=== PATIENT | female | born 1955 | race Hispanic/Latino ===

== ENCOUNTER 2022-02-24 19:49 | Inpatient (IN) | payer OTHER ==
[2022-02-24 20:53] LABS: Absolute Lymphocytes (CBC) 0.4 K/uL (0.7-4.9); Lymphocytes % 2.8 % (15.3-44.8); MCV 90.6 fL (80-100); MPV 8.1 fL (7.6-11.3); RBC Red Blood Cell Count 4.42 M/uL (3.86-4.86)
--- NOTE | 2022-02-24 20:54 | RAD REPORT ---
EXAM DESCRIPTION: RAD - Chest Single View - 02/24/2022 8:37 pm CLINICAL HISTORY: CHEST PAIN COMPARISON: CHEST PA AND LAT 2 VIEW dated 03/10/2011; CHEST SINGLE VIEW dated 11/27/2007; CHEST PA AND LAT 2 VIEW dated 07/08/2007 FINDINGS: Lines: None. Lungs: No evidence of edema or pneumonia. Pleural: No significant pleural effusions or pneumothorax. Cardiac: The heart size is within normal limits. Mediastinum: Within normal limits. Bones: No acute fractures. Other: None IMPRESSION: No acute cardiopulmonary disease.
[2022-02-24] MEDS ORDERED: FENTANYL CITR 100 MCG/2 ML ONE (20:59)
[2022-02-24] MEDS ORDERED: ONDANSETRON 4 MG/2 ML VIAL ONE (20:59)
[2022-02-24 21:04] LABS: Protime INR 1.04
[2022-02-24 21:21] LABS: Urine Blood 1+ (Negative); Urine Glucose Negative (Negative); Urine Protein 2+ (Negative); Urine Specific Gravity 1.025 (1.005-1.030)
[2022-02-24 21:22] LABS: Potassium 3.4 mmol/L (3.5-5.1); Troponin High Sensitivity 8.8 pg/mL (<58.9)
[2022-02-25] LABS: Urine Bacteria <20 /HPF (<20); Urine Mucus 4+ /HPF (None Seen)
--- NOTE | 2022-02-25 00:34 | EDPHYS ---
Physician Documentation [facility] Name: Florence Parikh Age: 66 yrs Sex: Female : 1955 Arrival Date: 02/24/2022 Time: 19:52 Bed 7 Private MD: IDALIA Physician Sim Nguyen HPI: 02/24 23:03 This 66 yrs old Female presents to ER via Wheelchair with complaints of Chest kb Pain, Vomiting, Shaking. 23:03 The patient or guardian reports chest pain that is located primarily in the chest kb diffusely. Onset: today. The pain radiates to back. Associated signs and symptoms: Pertinent positives: nausea, vomiting. The chest pain is described as aching. Duration: The patient or guardian reports a single episode. Modifying factors: The symptoms are alleviated by nothing. the symptoms are aggravated by nothing. Severity of pain: At its worst the pain was moderate in the emergency department the pain is unchanged. The patient has not experienced similar symptoms in the past. The patient has been recently seen by a physician:. Pt had angiography to remove blockage from left leg this morning. States she went home and took a nap afterwards. When she woke up she was shaking and vomited once. States she talked to her dr and was told to drink juice. states pt drank juice and the shaking stopped. Pt ended up vomiting once more prior to coming in. States chest pain started prior to arrival and now is radiating to back. . Historical: - Allergies: 20:09 Sulfa (Sulfonamide Antibiotics); eh3 20:09 Codeine; eh3 - PMHx: 20:09 Hypertensive disorder; eh3 - PSHx: 20:09 None; eh3 - Immunization history:: Adult Immunizations up to date, Client reports receiving the 2nd dose of the Covid vaccine. - Social history:: Smoking status: Patient denies any tobacco usage or history of. Patient/guardian denies using alcohol. ROS: 23:01 Abdomen/GI: Negative for abdominal pain, nausea, vomiting, diarrhea, and constipation. kb 23:01 Constitutional: Positive for chills. 23:01 Cardiovascular: Positive for chest pain, Negative for edema, orthopnea, palpitations, paroxysmal nocturnal dyspnea. 23:01 Abdomen/GI: Positive for nausea and vomiting, Negative for abdominal pain. 23:01 All other systems are negative. Exam: 23:01 Constitutional: This is a well developed, well nourished patient who is awake, alert, kb and in no acute distress. Head/Face: Normocephalic, atraumatic. ENT: Moist Mucous membranes Cardiovascular: Regular rate and rhythm with a normal S1 and S2. No gallops, murmurs, or rubs. No pulse deficits. Respiratory: Respirations even and unlabored. No increased work of breathing. Talking in full sentences Abdomen/GI: Soft, non-tender. No distention Skin: Warm, dry with normal turgor. Normal color. MS/ Extremity: Pulses equal, no cyanosis. Neurovascular intact. Full, normal range of motion. Neuro: Awake and alert, GCS 15, oriented to person, place, time, and situation. Moves all extremities. Normal gait. Psych: Awake, alert, with orientation to person, place and time. Behavior, mood, and affect are within normal limits. Vital Signs: 20:04 BP 151 / 71; Pulse 116; Resp 18; Temp 100.3(O); Pulse Ox 97% on R/A; Weight 81.65 kg; eh3 Height 5 ft. 3 in. (160.02 cm); Pain 8/10; 20:23 BP 162 / 72; Pulse 111; Resp 17; Pulse Ox 95% on R/A; kl 22:00 BP 157 / 70; Pulse 108; Resp 16; Pulse Ox 97% on R/A; kl 22:17 Pain 3/10; kl 02/25 02:33 BP 124 / 78; Pulse 78; Resp 18; Temp 98.2(TE); Pulse Ox 99% on R/A; kl 02/24 20:04 Body Mass Index 31.89 (81.65 kg, 160.02 cm) eh3 MDM: 02/24 20:09 Patient medically screened. kb 23:00 Data reviewed: vital signs, nurses notes. Data interpreted: Pulse oximetry: on room air kb is 97 %. Interpretation: normal. 02/25 00:33 Counseling: I had a detailed discussion with the patient and/or guardian regarding: the kb historical points, exam findings, and any diagnostic results supporting the discharge/admit diagnosis, lab results, radiology results, the need for further work-up and treatment in the hospital. Physician consultation: Jennifer RUEDA was contacted at 00:33, regarding admission, patient's condition, and will see patient in ED. 01:45 ED course: Severe sepsis criteria met at 0144. Source (A): UTI; SIRS Criteria (B): WBC, kb heart rate; End organ dysfunction (C): lactate. . 02/24 20:11 Order name: Basic Metabolic Panel; Complete Time: 21:26 kb 02/24 20:11 Order name: CBC with Diff; Complete Time: 21:04 kb 02/24 20:11 Order name: NT PRO-BNP; Complete Time: 21:26 kb 02/24 20:11 Order name: PT-INR; Complete Time: 21:04 kb 02/24 20:11 Order name: Troponin HS; Complete Time: 21:26 kb 02/24 20:11 Order name: COVID-19 SARS RT PCR (Document "Date of Onset" if Symptomatic); Complete kb Time: 21:40 02/24 20:11 Order name: XRAY Chest (1 view); Complete Time: 20:59 kb 02/24 20:11 Order name: Flu; Complete Time: 21:26 kb 02/24 20:11 Order name: Urine Microscopic Only; Complete Time: 00:06 kb 02/24 21:21 Order name: Urine Dipstick-Ancillary; Complete Time: 21:26 EDMS 02/25 00:08 Order name: Urine Culture EDMS 02/25 00:27 Order name: Blood Culture Adult (2) kb 02/25 00:27 Order name: Lactate; Complete Time: 01:44 kb 02/24 20:11 Order name: EKG; Complete Time: 20:13 kb 02/24 20:11 Order name: Cardiac monitoring; Complete Time: 20:35 kb 02/24 20:11 Order name: EKG - Nurse/Tech; Complete Time: 20:35 kb 02/24 20:11 Order name: IV Saline Lock; Complete Time: 20:35 kb 02/24 20:11 Order name: Labs collected and sent; Complete Time: 20:35 kb 02/24 20:11 Order name: O2 Per Protocol; Complete Time: 22:25 kb 02/24 20:11 Order name: O2 Sat Monitoring; Complete Time: 22:25 kb 02/24 20:11 Order name: Urine Dipstick-Ancillary (obtain specimen); Complete Time: 22:21 kb Administered Medications: 02/24 20:55 Drug: Zofran (Ondansetron) 4 mg Route: IVP; Site: right antecubital; 22:00 Follow up: Response: Marked relief of symptoms 20:57 Drug: fentaNYL (PF) 50 mcg Route: IVP; Site: right antecubital; kl 22:00 Follow up: Response: Marked relief of symptoms 02/25 02:25 Drug: Rocephin (cefTRIAXone) 1 grams Route: IV; Rate: calculated rate; Site: left kl forearm; 03:00 Follow up: Response: No adverse reaction 02:32 Drug: Hickman (HYDROcodone-acetaminophen) (7.5 mg-325 mg) 1 tabs Route: PO; 03:00 Follow up: Response: No adverse reaction 02:32 Drug: NS 0.9% 1000 ml Route: IV; Rate: 1000 ml; Site: left forearm; Disposition: 05:02 Co-signature as Attending Physician, Sim Nguyen MD. rn Disposition Summary: 02/25/22 00:34 Hospitalization Ordered Hospitalization Status: Observation kb Provider: Jonnathan Billings Location: Telemetry/MedSurg (observation) kb Condition: Stable kb Problem: new kb Symptoms: are unchanged kb Bed/Room Type: Standard Room Assignment: [facility](02/25/22 02:30) mw Diagnosis - Elevated white blood cell count kb - Chest pain, unspecified kb - UTI/ Urinary tract infection, site not specified kb - Severe sepsis without septic shock kb Forms: - Medication Reconciliation Form kb - SBAR form kb Signatures: Dispatcher [employer] EDSerena Wood FNP-C FNP-Lila Pierre RN RN kl Webb, Martha, RN RN mw Nieto, Roman, MD MD rn Brown, Sophia, PA PA sb3 Darcy Edwards RN RN eh3 Corrections: (The following items were deleted from the chart) 01:48 01:45 ED course: Severe sepsis criteria met. Source (A): UTI; SIRS Criteria (B): WBC, kb heart rate; End organ dysfunction (C): lactate. . kb 02:30 00:34 kb mw
--- NOTE | 2022-02-25 00:34 | ER ---
Nurse's Notes [facility] Name: Florence Parikh Age: 66 yrs Sex: Female : 1955 Arrival Date: 02/24/2022 Time: 19:52 Bed 7 Private MD: Diagnosis: Elevated white blood cell count;Chest pain, unspecified;UTI/ Urinary tract infection, site not specified;Severe sepsis without septic shock Presentation: 02/24 20:04 Chief complaint: Patient states: had angiogram around noon today, then around 5pm she eh3 began shaking uncontrollably with left shoulder pain radiating to left upper back. Coronavirus screen:. Coronavirus screen: At this time, the client does not indicate any symptoms associated with coronavirus-19. Ebola Screen: No symptoms or risks identified at this time. Initial Sepsis Screen: Does the patient meet any 2 criteria? No. Patient's initial sepsis screen is negative. Does the patient have a suspected source of infection? No. Patient's initial sepsis screen is negative. Risk Assessment: Do you want to hurt yourself or someone else? Patient reports no desire to harm self or others. Onset of symptoms was February 24, 2022. 20:04 Method Of Arrival: Wheelchair eh3 20:04 Acuity: LYNNETTE 3 eh3 Triage Assessment: 20:09 General: Appears in no apparent distress. uncomfortable, Behavior is calm, cooperative, eh3 appropriate for age. Pain: Complains of pain in chest Pain does not radiate. Pain currently is 8 out of 10 on a pain scale. Quality of pain is described as throbbing. EENT: No signs and/or symptoms were reported regarding the EENT system. Neuro: Level of Consciousness is awake, alert, obeys commands, Oriented to person, place, time, situation, Appropriate for age. Cardiovascular: Capillary refill < 3 seconds Patient's skin is warm and dry. Respiratory: Airway is patent Respiratory effort is even, unlabored. GI: Abdomen is round non-distended, Reports nausea. : No signs and/or symptoms were reported regarding the genitourinary system. Derm: No signs and/or symptoms reported regarding the dermatologic system. Musculoskeletal: No signs and/or symptoms reported regarding the musculoskeletal system. Historical: - Allergies: 20:09 Sulfa (Sulfonamide Antibiotics); eh3 20:09 Codeine; eh3 - PMHx: 20:09 Hypertensive disorder; eh3 - PSHx: 20:09 None; eh3 - Immunization history:: Adult Immunizations up to date, Client reports receiving the 2nd dose of the Covid vaccine. - Social history:: Smoking status: Patient denies any tobacco usage or history of. Patient/guardian denies using alcohol. Screenin:22 Abuse screen: Denies threats or abuse. Nutritional screening: No deficits noted. Tuberculosis screening: No symptoms or risk factors identified. Fall Risk None identified. Assessment: 20:20 General: Appears distressed, uncomfortable, well groomed, well developed, Behavior is kl cooperative, restless. Pain: Complains of pain in anterior aspect of left upper chest Pain radiates to left arm Pain currently is 10 out of 10 on a pain scale. Pain began 1 hour ago. Neuro: No deficits noted. Cardiovascular: Heart tones S1 S2 Rhythm is sinus tachycardia. Respiratory: No deficits noted. GI: Reports vomiting. : No deficits noted. No signs and/or symptoms were reported regarding the genitourinary system. EENT: No deficits noted. No signs and/or symptoms were reported regarding the EENT system. 22:00 Reassessment: Patient appears in no apparent distress at this time. No changes from previously documented assessment. Patient is alert, oriented x 3, equal unlabored respirations, skin warm/dry/pink. 23:00 Reassessment: Patient appears in no apparent distress at this time. No changes from previously documented assessment. Patient is alert, oriented x 3, equal unlabored respirations, skin warm/dry/pink. Vital Signs: 20:04 BP 151 / 71; Pulse 116; Resp 18; Temp 100.3(O); Pulse Ox 97% on R/A; Weight 81.65 kg; eh3 Height 5 ft. 3 in. (160.02 cm); Pain 8/10; 20:23 BP 162 / 72; Pulse 111; Resp 17; Pulse Ox 95% on R/A; kl 22:00 BP 157 / 70; Pulse 108; Resp 16; Pulse Ox 97% on R/A; kl 22:17 Pain 3/10; kl 02/25 02:33 BP 124 / 78; Pulse 78; Resp 18; Temp 98.2(TE); Pulse Ox 99% on R/A; kl 02/24 20:04 Body Mass Index 31.89 (81.65 kg, 160.02 cm) eh3 ED Course: 02/24 19:52 Patient arrived in ED. bp1 20:04 [facility] Pad[facility]C [facility]. kb 20:04 Sim Nguyen MD is Attending Physician. kb 20:09 Triage completed. eh3 20:09 Arm band placed on right wrist. eh3 20:22 Patient has correct armband on for positive identification. Client placed on continuous kl cardiac and pulse oximetry monitoring. NIBP monitoring applied. 20:22 EKG done, by ED staff, reviewed by Serena JARAMILLO. kl 20:35 Basic Metabolic Panel Sent. kl 20:35 CBC with Diff Sent. kl 20:35 NT PRO-BNP Sent. kl 20:35 PT-INR Sent. kl 20:35 Troponin HS Sent. kl 20:39 XRAY Chest (1 view) In Process Unspecified. EDMS 20:41 Inserted saline lock: 20 gauge in right antecubital area, using aseptic technique. oe Blood collected. 20:41 Flu Sent. oe 20:41 COVID-19 SARS RT PCR (Document "Date of Onset" if Symptomatic) Sent. oe 23:30 Urine Microscopic Only Sent. ll3 02/25 00:33 Jonnathan Billings is Hospitalizing Provider. kb 02:16 Inserted IV discontinued, intact, bleeding controlled, No redness/swelling at site. kl Pressure dressing applied, per patietn request. 02:16 Inserted saline lock: 22 gauge in left forearm, using aseptic technique. kl 02:33 No provider procedures requiring assistance completed. Patient maintains SpO2 kl saturation greater than 95% on room air. Administered Medications: 02/24 20:55 Drug: Zofran (Ondansetron) 4 mg Route: IVP; Site: right antecubital; kl 22:00 Follow up: Response: Marked relief of symptoms kl 20:57 Drug: fentaNYL (PF) 50 mcg Route: IVP; Site: right antecubital; kl 22:00 Follow up: Response: Marked relief of symptoms 02/25 02:25 Drug: Rocephin (cefTRIAXone) 1 grams Route: IV; Rate: calculated rate; Site: left kl forearm; 03:00 Follow up: Response: No adverse reaction kl 02:32 Drug: [place] (HYDROcodone-acetaminophen) (7.5 mg-325 mg) 1 tabs Route: PO; 03:00 Follow up: Response: No adverse reaction 02:32 Drug: NS 0.9% 1000 ml Route: IV; Rate: 1000 ml; Site: left forearm; Medication: 03:00 VIS not applicable for this client. pat Outcome: 00:34 Decision to Hospitalize by Provider. kb 02:59 Admitted to Tele accompanied by tech, via wheelchair, room 413, Report called to pat ness 02:59 Condition: improved 02:59 Instructed on the need for admit, Demonstrated understanding of instructions. 03:20 Patient left the ED. ll3 Signatures: Dispatcher [employer] EDSerena Wood, ADVICE NURSE-C ADVICE NURSE-CkLila Amaya, RN Deandre Aguayo Brittany bp1 Loubet, Lynsea, RN RN ll3 Darcy Edwards RN RN eh3
--- NOTE | 2022-02-25 02:01 | P.HP ---
Certification for Inpatient Patient admitted to: Inpatient With expected LOS: <2 Midnights Patient will require the following post-hospital care: None Practitioner: I am a practitioner with admitting privileges, knowledge of patient current condition, hospital course, and medical plan of care. Services: Services provided to patient in accordance with Admission requirements found in Title 42 Section 412.3 of the Code of Federal Regulations Patient History Date of Service: 02/25/22 Primary Care Provider: Emeka Reason for admission: UTI, Sepsis History of Present Illness: Patient is a 66 year-old female with history of hypertension and type 2 diabetes who presented to the ED with complaints of chest pain, vomiting, and shaking. Patient reports that she had a leg left angiogram with Dr. Solomon today at 1200 that went well and woke up this evening feeling poorly. She is febrile and tachycardic upon arrival to ED. Labs significant for WBC 15.6 with left shift, potassium 3.4, lactic acid 2.9, and urine positive for UTI. She was started on rocephin in ED. She is admitted for further management. Home medications list reviewed: Yes - Past Medical/Surgical History Diabetic: No -: Hypertension -: Cholecystectomy -: Angiogram Psychosocial/ Personal History: Patient lives at home with her . - Social History Smoking Status: Never smoker Alcohol use: No CD- Drugs: No Caffeine use: Yes Place of Residence: Home Review of Systems General: Fever, Chills Cardiovascular: Chest Pain Gastrointestinal: Nausea, Vomiting Physical Examination - Physical Exam General: Alert, In no apparent distress, Obese, Other (anxious, tearful) HEENT: Atraumatic, PERRLA, EOMI, Sclerae nonicteric Neck: Supple, 2+ carotid pulse no bruit, No LAD, Without JVD or thyroid abnormality Respiratory: Clear to auscultation bilaterally, Normal air movement Cardiovascular: Regular rate/rhythm, Normal S1 S2 Gastrointestinal: Normal bowel sounds, No tenderness Musculoskeletal: No tenderness Integumentary: No rashes Neurological: Normal speech, Normal strength at 5/5 x4 extr, Normal tone, Normal affect - Studies Laboratory Data (last 24 hrs) 02/24/22 20:28: PT 11.5, INR 1.04 02/24/22 20:28: WBC 15.60 H, Hgb 13.4, Hct 40.0, Plt Count 195 02/24/22 20:28: Sodium 141, Potassium 3.4 L, BUN 14, Creatinine 0.98, Glucose 144 H Microbiology Data (last 24 hrs): 02/24/22 20:37 Nasopharnyx Influenza Type A Antigen Screen - Final 02/24/22 20:37 Nasopharnyx Influenza Type B Antigen Screen - Final Assessment and Plan - Problems (Diagnosis) (1) UTI (urinary tract infection) Current Visit: Yes Status: Acute Qualifiers: Urinary tract infection type: acute cystitis Hematuria presence: with hematuria Qualified Code(s): N30.01 - Acute cystitis with hematuria (2) Sepsis Current Visit: Yes Status: Acute Qualifiers: Sepsis type: sepsis due to unspecified organism Sepsis acute organ dysfunction status: without acute organ dysfunction Qualified Code(s): A41.9 - Sepsis, unspecified organism (3) Hypertension Current Visit: Yes Status: Acute Qualifiers: Hypertension type: primary hypertension Qualified Code(s): I10 - Essential (primary) hypertension - Plan -Patient denies any UTI symptoms. Anxiety likely a component (crying during IV insertion). -Continue rocephin. Follow urine culture -Meeting severe sepsis criteria at this time -Received 1L fluid in ED. Will continue maintenance IVF at 100 cc/hr -Morphine PRN pain -Monitor and replete electrolytes per protocol -Reconcile and continue home medications -Lovenox for VTE ppx -Full code Discharge Plan: Home Plan to discharge in: 48 Hours - Advance Directives Does patient have a Living Will: No Does patient have a Durable POA for Healthcare: No - Code Status/Comfort Care Code Status Assessed: Yes (Full) Critical Care: No Time Spent Managing Pts Care (In Minutes): 50
[2022-02-25] MEDS ORDERED: HYDROCODONE/APAP 7.5/325 MG TAB ONE (02:33)
[2022-02-25] MEDS ORDERED: NA CHLORIDE 0.9% 1,000 ML ONE (02:33)
[2022-02-25] MEDS ORDERED: CEFTRIAXONE 1000 MG/VIAL ONE (02:33)
[2022-02-25] MEDS ORDERED: ACETAMINOPHEN 500 MG TAB PO PRN (03:18)
[2022-02-25] MEDS: NA CHLORIDE 0.9% 1,000 ML IV SCH ×4 (03:18→21:11)
[2022-02-25 04:28] LABS: Absolute Lymphocytes (CBC) 0.4 K/uL (0.7-4.9); Hematocrit 35.4 % (36.0-45.0); Lymphocytes % 2.3 % (15.3-44.8); MCV 90.9 fL (80-100); MPV 7.8 fL (7.6-11.3)
[2022-02-25 05:00] LABS: Magnesium 1.6 mg/dL (1.8-2.4); Phosphorus 3.3 mg/dL (2.5-4.9); Potassium 3.4 mmol/L (3.5-5.1); Thyroid Stimulating Hormone 0.6 uIU/mL (0.360-3.740)
[2022-02-25] MEDS ORDERED: MAGNESIUM SULFATE 1 gm IVPB 1 GM/100 ML BAG IV ONE (08:00)
[2022-02-25] MEDS ORDERED: POTASSIUM 25 MEQ EFFERV TAB PO ONE (08:00)
[2022-02-25] MEDS: MORPHINE 2 MG/ML SYR IV PRN ×2 (08:37→21:09)
[2022-02-25] MEDS: CEFEPIME 2 GM in NA CHLORIDE 0.9% 100 ML IV SCH ×2 (08:37→21:11)
[2022-02-25] MEDS: ENOXAPARIN 40 MG/0.4 ML SQ SCH (08:37)
[2022-02-25] MEDS: ONDANSETRON 4 MG/2 ML VIAL IV PRN (08:45)
[2022-02-25] MEDS: VANCOMYCIN 1.5 GM in NA CHLORIDE 0.9% 500 ML IVPB SCH (08:46)
[2022-02-25] MEDS ORDERED: VANCOMYCIN 1.25 GM in NA CHLORIDE 0.9% 250 ML IVPB SCH (09:00)
[2022-02-25] MEDS ORDERED: CEFTRIAXONE 1,000 MG in NA CHLORIDE 0.9% 50 ML IVPB SCH (09:00)
--- NOTE | 2022-02-25 13:01 | P.PN ---
Date of Service: 02/25/22 Patient seen and examined. She is complaining of abdominal pain and nausea. She is also complaining of chest pain Diagnosis: UTI Sepsis Plan: Broaden antibiotics to IV cefepime and vancomycin given recent intravascular surgery. Follow urine culture and blood cultures. Trend troponin for chest pain. Pain medication as needed. Obtain echocardiogram.
--- NOTE | 2022-02-25 13:56 | EKG ---
Test Date: 2022-02-24 Test Time: 20:11:56 Primary Substance Abuse Counselor: JORGE MEASUREMENT RESULTS: Intervals: Rate: 108 ME: 140 QRSD: 76 QT: 326 QTc: 436 [place]: P: 53 ME: 140 QRS: 32 T: 43 INTERPRETIVE STATEMENTS: Sinus tachycardia Otherwise normal ECG Compared to ECG 03/10/2011 14:34:12 Sinus rhythm no longer present Electronically Signed On 02-25-22 13:55:15 CDT by Bob Munson
[2022-02-25] MEDS: KCL 20 MEQ/100 mL IVPB 20 MEQ/100 ML BAG IV SCH ×2 (15:17→18:13)
[2022-02-26 04:08] LABS: Lymphocytes % 8.9 % (15.3-44.8); MCV 90.1 fL (80-100); MPV 8.2 fL (7.6-11.3); RBC Red Blood Cell Count 3.77 M/uL (3.86-4.86)
[2022-02-26 04:21] LABS: Magnesium 1.9 mg/dL (1.8-2.4); Phosphorus 1.7 mg/dL (2.5-4.9); Potassium 3.7 mmol/L (3.5-5.1)
[2022-02-26] MEDS ORDERED: POTASSIUM CL SA 10 MEQ TAB PO ONE (04:42)
[2022-02-26] MEDS ORDERED: POTASS/SODIUM PHOSPHATE 1 PKT POWD.PACK PO SCH (06:04)
[2022-02-26] MEDS: NA CHLORIDE 0.9% 1,000 ML IV SCH ×2 (06:38→17:39)
[2022-02-26 07:17] VITALS: BMI 33.0
[2022-02-26] MEDS ORDERED: POTASSIUM PHOS 22 MEQ in NA CHLORIDE 0.9% 250 ML IV ONE (07:30)
[2022-02-26] MEDS: CEFEPIME 2 GM in NA CHLORIDE 0.9% 100 ML IV SCH ×2 (08:26→22:10)
[2022-02-26] MEDS: ENOXAPARIN 40 MG/0.4 ML SQ SCH (08:27)
[2022-02-26] MEDS ORDERED: POTASSIUM PHOS IN 0.9 % NACL 15 MMOL/250 ML BAG IV ONE (09:00)
[2022-02-26] MEDS: VANCOMYCIN 1.5 GM in NA CHLORIDE 0.9% 500 ML IVPB SCH (10:37)
--- NOTE | 2022-02-26 14:14 | P.PN ---
Subjective Date of Service: 02/26/22 Primary Care Provider: Emeka Chief Complaint: UTI, Sepsis States she feels better today. She denies nausea, no vomiting. She is tolerating diet. No recorded fever. She is complaining of chest tightness. Troponin trended and yesterday was negative. EKG demonstrated sinus tachycardia. Physical Examination - Vital Signs Temperature: 97.5 F Blood Pressure: 116/56 Pulse: 83 Respirations: 14 Pulse Ox (%): 98 - Studies Microbiology Data (last 24 hrs): 02/25/22 01:51 Blood - Blood Anaerobic Blood Culture - Final Assessment And Plan - Current Problems (Diagnosis) (1) Chest tightness Current Visit: Yes Status: Acute (2) Hypertension Current Visit: Yes Status: Acute Qualifiers: Hypertension type: primary hypertension Qualified Code(s): I10 - Essential (primary) hypertension (3) Sepsis Current Visit: Yes Status: Acute Qualifiers: Sepsis type: sepsis due to unspecified organism Sepsis acute organ dysfunction status: without acute organ dysfunction Qualified Code(s): A41.9 - Sepsis, unspecified organism (4) UTI (urinary tract infection) Current Visit: Yes Status: Acute Qualifiers: Urinary tract infection type: acute cystitis Hematuria presence: with hematuria Qualified Code(s): N30.01 - Acute cystitis with hematuria - Plan Physical Exam General: Alert, In no apparent distress. Neck: Supple,No LAD, Without JVD. Respiratory: Clear to auscultation bilaterally, Normal air movement Cardiovascular: Regular rate/rhythm, Normal S1 S2 Gastrointestinal: Normal bowel sounds, No tenderness Musculoskeletal: No tenderness Integumentary: No rashes Neurological: Normal speech, Normal strength at 5/5 x4 extr, Normal affect. Plan: Patient is responding clinically to the current antibiotics. Leukocytosis trended down and almost resolved No fever since yesterday. Appetite has improved and patient is eating. Urine culture: Mixed growth. Continue to follow. Blood culture: No growth to date. Patient with recent intravascular surgery, history of PAD, high risk for CAD. Troponin negative, EKG demonstrated sinus tachycardia. No ACS. Patient is complaining of intermittent chest tightness. Repeat EKG and troponin. Bronchodilators.
[2022-02-26] MEDS ORDERED: ALBUTEROL 2.5 MG/3 ML NEB SOL NEB PRN (14:18)
[2022-02-26] MEDS: MORPHINE 2 MG/ML SYR IV PRN (17:37)
[2022-02-26] MEDS: ONDANSETRON 4 MG/2 ML VIAL IV PRN (19:41)
[2022-02-26] MEDS ORDERED: HYDRALAZINE HCL 20 MG/ML VIAL IV PRN (21:50)
[2022-02-27] MEDS: MORPHINE 2 MG/ML SYR IV PRN (00:36)
[2022-02-27] MEDS ORDERED: ZOLPIDEM TARTRATE 5 MG TABLET PO PRN (00:37)
[2022-02-27 04:41] LABS: Absolute Lymphocytes (CBC) 1.4 K/uL (0.7-4.9); Hematocrit 32.2 % (36.0-45.0); Lymphocytes % 18.9 % (15.3-44.8); MCV 90.8 fL (80-100); MPV 8.3 fL (7.6-11.3); RBC Red Blood Cell Count 3.55 M/uL (3.86-4.86)
[2022-02-27 05:00] LABS: Potassium 3.8 mmol/L (3.5-5.1)
[2022-02-27] MEDS: NA CHLORIDE 0.9% 1,000 ML IV SCH ×3 (05:18→14:52)
[2022-02-27] MEDS ORDERED: METFORMIN ER 500 MG TAB PO SCH (08:00)
[2022-02-27] MEDS: ENOXAPARIN 40 MG/0.4 ML SQ SCH (08:11)
[2022-02-27] MEDS: CEFEPIME 2 GM in NA CHLORIDE 0.9% 100 ML IV SCH (08:11)
[2022-02-27 08:41] VITALS: TEMP 97.7
[2022-02-27] MEDS ORDERED: hydroCHLOROthiazide 12.5 MG CAP PO SCH (09:00)
[2022-02-27] MEDS ORDERED: LOSARTAN POTASSIUM 50 MG TABLET PO SCH (09:00)
[2022-02-27] MEDS ORDERED: POTASSIUM CL SA 10 MEQ TAB PO ONE (09:00)
[2022-02-27] MEDS ORDERED: ATORVASTATIN 10 MG TAB PO SCH (09:00)
[2022-02-27] MEDS ORDERED: atenoloL 25 MG TAB PO SCH (09:00)
[2022-02-27 09:48] VITALS: O2SAT 97
[2022-02-27 11:50] VITALS: BP 141/67
--- NOTE | 2022-02-27 12:38 | RAD REPORT ---
EXAM DESCRIPTION: CT - Chest For Pe Angio - 02/27/2022 12:07 pm CLINICAL HISTORY: Chest pain. Dyspnea-unknown cause COMPARISON: Chest Single View dated 02/24/2022 TECHNIQUE: CT angiogram of the pulmonary arteries was performed with MIP. All CT scans are performed using dose optimization technique as appropriate and may include automated exposure control or mA/KV adjustment according to patient size. FINDINGS: No evidence of pulmonary thromboembolism. No acute aortic finding demonstrated. The lungs are clear. No significant pericardial or pleural fluid. No concerning bony finding. Cholecystectomy clips. IMPRESSION: No evidence of pulmonary thromboembolism. No acute lung findings.
--- NOTE | 2022-02-27 15:05 | P.DS ---
Admission Date: 02/25/22 Discharge Date: 02/27/22 Primary Care Provider: Emeka Disposition: ROUTINE DISCHARGE Discharge Condition: FAIR Reason for Admission: UTI, Sepsis - Problems (1) Chest tightness Current Visit: Yes Status: Acute (2) Hypertension Current Visit: Yes Status: Acute Qualifiers: Hypertension type: primary hypertension Qualified Code(s): I10 - Essential (primary) hypertension (3) Sepsis Current Visit: Yes Status: Acute Qualifiers: Sepsis type: sepsis due to unspecified organism Sepsis acute organ dysfunction status: without acute organ dysfunction Qualified Code(s): A41.9 - Sepsis, unspecified organism (4) UTI (urinary tract infection) Current Visit: Yes Status: Acute Qualifiers: Urinary tract infection type: acute cystitis Hematuria presence: with hematuria Qualified Code(s): N30.01 - Acute cystitis with hematuria Brief History of Present Illness: Patient is a 66 year-old female with history of hypertension and type 2 diabetes who presented to the ED with complaints of chest pain, vomiting, and shaking. Patient reports that she had a leg left angiogram with Dr. Solomon same day. She later began feeling poorly. She developed fever. Noted to be febrile and tachycardic upon arrival to ED. Labs significant for WBC 15.6 with left shift, potassium 3.4, lactic acid 2.9, and urine positive for UTI. She was started on rocephin in ED. She is admitted for further management and admitted for further management. Hospital Course: Patient admitted to the medical floor. Her urinalysis was negative but urine culture grew mixed bacteria. Patient initially treated with broad-spectrum antibiotics given recent intravascular surgery. Antibiotics scaled down to cefepime once blood culture resulted negative. She was complaining of chest tightness, troponin trended negative, EKG unremarkable. Patient is a smoker and suspected COPD. Her symptoms improved with bronchodilator. She has had no fever over the past 48 hours. Patient's status symptoms have resolved. She is discharged for oral cefpodoxime to continue treatment for the UTI. She is also prescribed with bronchodilators and informed to follow-up with Dr. Timmons for further evaluation for asthma versus COPD. Vital Signs/Physical Exam: Temp Pulse Resp BP Pulse Ox 97.7 F 65 14 141/67 H 100 02/27/22 11:49 02/27/22 11:49 02/27/22 11:49 02/27/22 11:49 02/27/22 11:49 General: Alert, In no apparent distress, Oriented x3 HEENT: Mucous membr. moist/pink Neck: JVD not distended Respiratory: Clear to auscultation bilaterally, Normal air movement Cardiovascular: No edema, Regular rate/rhythm, Normal S1 S2 Gastrointestinal: Normal bowel sounds, Soft and benign, Non-distended, No tenderness Musculoskeletal: No swelling Integumentary: No rashes, No cyanosis Neurological: Normal strength at 5/5 x4 extr Laboratory Data at Discharge: WBC 7.50 K/uL (4.3-10.9) D 02/27/22 04:14 Hgb 11.0 g/dL (12.0-15.0) L 02/27/22 04:14 Hct 32.2 % (36.0-45.0) L 02/27/22 04:14 Plt Count 147 K/uL (152-406) L 02/27/22 04:14 PT 11.5 SECONDS (9.5-12.5) 02/24/22 20:28 INR 1.04 02/24/22 20:28 Sodium 140 mmol/L (136-145) 02/27/22 04:14 Potassium 3.8 mmol/L (3.5-5.1) 02/27/22 04:14 BUN 5 mg/dL (7-18) L 02/27/22 04:14 Creatinine 0.53 mg/dL (0.55-1.3) L 02/27/22 04:14 Glucose 110 mg/dL (74-106) H 02/27/22 04:14 Phosphorus 1.7 mg/dL (2.5-4.9) L 02/26/22 03:24 Magnesium 1.9 mg/dL (1.8-2.4) 02/26/22 03:24 Home Medications: Atenolol [Tenormin] 25 mg PO DAILY 02/25/22 Atorvastatin Calcium [Lipitor*] 10 mg PO DAILY 02/25/22 Losartan Potassium 100 mg PO DAILY 02/25/22 Metformin ER [Glucophage ER*] 500 mg PO BID 02/25/22 hydroCHLOROthiazide [Hydrochlorothiazide*] 12.5 mg PO DAILY 02/25/22 Albuterol Inhaler [Ventolin Inhaler*] 2 puff IH Q6H PRN #1 inhaler 02/27/22 Cefpodoxime Proxetil [Vantin] 200 mg PO BID #14 tab 02/27/22 New Medications: Cefpodoxime Proxetil [Vantin] 200 mg PO BID #14 tab Albuterol Inhaler [Ventolin Inhaler*] 2 puff IH Q6H PRN #1 inhaler PRN Reason: Shortness Of Breath Diet: AHA Activity: Ad alexa Followup: Mike Timmons MD [ACTIVE - CAN ADMIT] - 1-2 Weeks (Asthma/COPD diagnosis) Agapito Hendrickson DO [Primary Care Provider] - Time spent managing pt's care (in minutes): 36
--- NOTE | 2022-02-28 15:09 | EKG ---
Test Date: 2022-02-26 Test Time: 14:29:17 [employer] Manager: ANITA MEASUREMENT RESULTS: Intervals: Rate: 77 NH: 142 QRSD: 80 QT: 386 QTc: 436 [place]: P: 53 NH: 142 QRS: 74 T: 20 INTERPRETIVE STATEMENTS: Normal sinus rhythm Normal ECG Compared to ECG 02/24/2022 20:11:56 Sinus tachycardia no longer present Electronically Signed On 02-28-22 15:08:28 CDT by Bob Munson
== END 2022-02-27 16:12 | disposition home or self-care (01) | DRG 872 ==
LOC: ER 19:49 → ERHOLD 02-25 02:03 → 4TH 02-25 02:35
PROVIDERS: ADMIT Internal Medicine; ATTEND Internal Medicine
DX: A41.9 Sepsis, unspecified organism (principal); N30.01 Acute cystitis with hematuria; R07.89 Other chest pain; J44.9 Chronic obstructive pulmonary disease, unspecified; F41.9 Anxiety disorder, unspecified; I10 Essential (primary) hypertension; E11.9 Type 2 diabetes mellitus without complications; F17.210 Nicotine dependence, cigarettes, uncomplicated; Z20.822 Contact with and (suspected) exposure to COVID-19
CPT/HCPCS: 36415; 71045; 71275; 80048; 81003; 81015; 83605; 83735; 83880; 84100; 84132; 84443; 84484; 85025; 85610; 87040; 87086; 87088; 87804; 93005; 94640; 99285; J0360; J0692; J1650; J2270; J2405; J3010; J3370; J3475; J3480; J7030; J7040; J7050; Q9967; U0003